=== PATIENT | female | born 1975 | race Caucasian/White ===

== ENCOUNTER 2019-03-14 17:22 | Emergency (ER) | payer MEDICAID ==
[~2019-03-14] VITALS: Ht 162.6 cm; Wt 64.0 kg
[2019-03-14] MEDS ORDERED: ACETAMINOPHEN 500MG TABLET PO ONE (23:30)
[2019-03-14] MEDS ORDERED: BUPIVACAINE HCL/PF 0.25% (2.5MG/ML) 10ML INFIL ONE (23:30)
[2019-03-14] MEDS ORDERED: IBUPROFEN 800MG TABLET PO ONE (23:30)
[2019-03-15 07:05] VITALS: BP 105/70
== END 2019-03-15 07:13 | disposition home or self-care (01) ==
LOC: ER 17:22
DX: G44.209 Tension-type headache, unspecified, not intractable (principal); J32.9 Chronic sinusitis, unspecified
CPT/HCPCS: 70450; 81025; 99284; J3490; Z7610